=== PATIENT | male | born 1985 | race American Indian/Alaskan Native ===

== ENCOUNTER 2018-12-04 16:37 | Emergency (ER) | payer SELFPAY ==
[2018-12-04 16:42] VITALS: BP 123/78
--- NOTE | 2018-12-04 16:56 | Emergency Department Report ---
Blank Doc - Documentation Documentation: 33-year-old male that presents with sore throat and body aches. Deneis any co ugh. This initial assessment/diagnostic orders/clinical plan/treatment(s) is/are subject to change based on patient's health status, clinical progression and re- assessment by fellow clinical providers in the ED. Further treatment and workup at subsequent clinical providers discretion. Patient/guardians urged not to elope from the ED as their condition may be serious if not clinically assessed a nd managed. Initial orders include: 1- Patient sent to [facility] for further evaluation and treatment 2- strep swab
[2018-12-04] MEDS ORDERED: IBUPROFEN PO ONE (17:39)
[2018-12-04] MEDS ORDERED: NACL 0.9% 1000 ML 1,000 ML IV ONE (17:39)
--- NOTE | 2018-12-04 17:40 | Emergency Department Report ---
Minor Respiratory - HPI Chief Complaint: Upper Respiratory Infection Stated Complaint: FLU LIKE SX Time Seen by Provider: 12/04/18 16:55 Duration: 2 Days Pain Location: Throat Severity: moderate Minor Respiratory: Yes Sore Throat, Yes Able to Tolerate Fluids, Yes Fever, No Rhinorrhea, No Ear Pain, No Cough, No Sick Contacts, No Hemoptysis, No Chest Pain, No Shortness of Breath Other History: 33 YO COMES TO ER WITH CHILLS AND FEVER SINCE LAST PM. SORE THROAT. MYALGIA. PMH. NONE. PSH. NONE. RX. NONE ED Review of Systems ROS: Stated complaint: FLU LIKE SX Other details as noted in HPI Comment: All other systems reviewed and negative ED Past Medical Hx - Past Medical History Previous Medical History?: No - Surgical History Past Surgical History?: No - Family History Family history: no significant - Social History Smoking Status: Current Every Day Smoker Substance Use Type: Alcohol - Medications Home Medications: Home Medications Medication Instructions Recorded Confirmed Last Taken Type Amoxicillin [Trimox CAP] 500 mg PO Q8H #30 capsule 12/04/18 Unknown Rx Minor Respiratory Exam - Exam General: Vital signs noted. No distress. Alert and acting appropriately. HEENT: Yes Pharyngeal Erythema, Yes Moist Mucous Membranes, No Pharyngeal Exudates, No Rhinorrhea, No Conjuctival Injection, No Frontal Tenderness, No Maxillary Tenderness Ear: Neither TM Bulge, Neither TM Erythema, Neither EAC Pain, Neither EAC Discharge Neck: Yes Adenopathy, Yes Supple Lungs: Yes Good Air Exchange, No Wheezes, No Ronchi Heart: Yes Regular, No Murmur Abdomen: Yes Normal Bowel Sounds, No Tenderness, No Peritoneal Signs Skin: No Rash, No Edema Neurologic: Alert and oriented, no deficits. Musculoskeletal: Unremarkable. ED Course Vital Signs 12/04/18 16:40 Temperature 99.0 F Pulse Rate 107 H Respiratory 18 Rate Blood Pressure 123/78 O2 Sat by Pulse 98 Oximetry ED Medical Decision Making - Radiology Data Radiology results: report reviewed, image reviewed - Medical Decision Making Lab Results 12/04/18 Range/Units 16:56 Group A Strep Rapid Positive A (Negative) Vital Signs 12/04/18 16:40 Temperature 99.0 F Pulse Rate 107 H Respiratory 18 Rate Blood Pressure 123/78 O2 Sat by Pulse 98 Oximetry MEDICATED IN ER TAKING PO DC HOME WITH DC PLAN OF CARE AND PCP FOLLOW UP - Differential Diagnosis URTI Critical care attestation.: If time is entered above; I have spent that time in minutes in the direct care of this critically ill patient, excluding procedure time. ED Disposition Clinical Impression: Strep pharyngitis Disposition: TO HOME OR SELFCARE Is pt being admited?: No Does the pt Need Aspirin: No Condition: Stable Instructions: Strep Throat (ED) Additional Instructions: TAKE MED UNTIL GONE IT IS FREE AT [facility] OR TYLENOL FOR PAIN OR FEVER GOOD HANDWASHING HYDRATE WELL WITH WATER Referrals: [facility] [Outside] - 3-5 Days Time of Disposition: 18:22
[2018-12-04] MEDS ORDERED: ROCEPHIN/NS 1 GM/50 ML 1 GM/50 ML BAG IV ONE (18:18)
[2018-12-04] MEDS ORDERED: DECADRON IM ONE (18:22)
[2018-12-04] MEDS ORDERED: DECADRON IV ONE (18:48)
== END 2018-12-04 19:28 | disposition home or self-care (01) ==
LOC: ED 16:37
DX: J02.0 Streptococcal pharyngitis (principal); F17.200 Nicotine dependence, unspecified, uncomplicated; Z88.8 Allergy status to other drugs, medicaments and biological substances
CPT/HCPCS: 71046; 87430; 96365; 96375; 99284; J0696; J1100; J7030